=== PATIENT | female | born 1980 ===

== ENCOUNTER 2020-11-28 07:25 | Day surgery (SDC) | payer OTHER | END 2020-11-28 10:35 | disposition home or self-care (01) | LOC: AMB-ENDOS 07:25 | PROVIDERS: ATTEND Surgery | DX: K29.50 Unspecified chronic gastritis without bleeding (principal); K44.9 Diaphragmatic hernia without obstruction or gangrene; Z20.822 Contact with and (suspected) exposure to COVID-19 ==